=== PATIENT | male | born 1965 | race African-American/Black ===

== ENCOUNTER 2019-02-09 15:34 | Emergency (ER) | payer OTHER ==
[~2019-02-09] VITALS: Ht 172.7 cm; Wt 75.0 kg
[2019-02-09] MEDS ORDERED: KETOROLAC 60MG/2ML VIAL IM ONE (16:15)
[2019-02-10 12:30] VITALS: BP 134/79
== END 2019-02-10 12:40 | disposition home or self-care (01) ==
LOC: ER 15:47
DX: M25.461 Effusion, right knee (principal); Z59.0 Homelessness
CPT/HCPCS: 73560; 96372; 99283; J1885; L1830